=== PATIENT | female | born 1990 | race Caucasian/White ===

== ENCOUNTER 2022-03-25 11:27 | Inpatient (IN) | payer OTHER ==
[2022-03-28] MEDS ORDERED: TERBUTALINE 1 MG/ML VIAL SQ PRN (06:32)
[2022-03-28] MEDS ORDERED: LIDOCAINE 0.5% (PF) 5 MG/ML (50 ML SDV) SQ PRN (06:32)
[2022-03-28] MEDS ORDERED: METHYLERGONOVINE 0.2 MG/ML 1 ML AMP IM PRN (06:32)
[2022-03-28] MEDS ORDERED: OXYTOCIN 10 UNIT/ML 1 ML VIAL IM PRN (06:32)
[2022-03-28] MEDS ORDERED: CARBOPROST TROMETHAMINE 250 MCG/ML 1 ML AMP IM PRN (06:32)
[2022-03-28] MEDS: LACTATED RINGERS 1,000 ML IV SCH ×3 (06:37→12:46)
[2022-03-28] MEDS ORDERED: OXYTOCIN 30 UNITS/500 ML NS 30 UNIT in SALINE 1 500ML.BAG IV SCH ×2 (06:45→17:00)
[2022-03-28 06:47] LABS: Basophils # (A) 0.1 k/uL (0-0.2); Basophils % (A) 1 %; Eosinophils # (A) 0.6 k/uL (0-0.7); Eosinophils % (A) 4 %; HCT 35.3 % (34.0-46.0); HGB 12.2 gm/dL (11.4-16.0); Lymphocytes # (A) 2.2 k/uL (1.0-4.8); Lymphocytes % (A) 17 %; MCHC 34.6 g/dL (31.0-37.0); MCV 92.3 fL (80.0-100.0); Mean Platelet Volume 7.7; Monocytes # (A) 0.8 k/uL (0-1.0); Monocytes % (A) 6 %; Neutrophils # (A) 9.1 k/uL (1.3-7.7); Neutrophils % (A) 71 %; Platelet Count 261 k/uL (150-450); RBC 3.83 m/uL (3.80-5.40); RDW 11.9 % (11.5-15.5); WBC 12.9 k/uL (3.8-10.6)
[2022-03-28] MEDS ORDERED: BUTORPHANOL 1 MG/ML 1 ML VIAL IV PRN (10:31)
--- NOTE | 2022-03-28 10:36 | P.HPOB ---
History of Present Illness H&P Date: 03/28/22 Chief Complaint: 40-3/7 weeks, induction of labor The patient is a 31-year-old 1 para 0 admitted at 40-3/7 weeks as established by a 15 week ultrasound. She is admitted for induction of labor with all signs reassuring. Her has been entirely uncomplicated and group B strep status is negative. On labor and delivery, she has a category 1 heart rate tracing. Obstetrical history: 1 para 0 current statistics listed in history of present illness. EDC of 03/25/2022 was established by 15 week ultrasound. Laboratory workup demonstrates a blood type of O+ with a negative antibody screen. Rubella status is immune. The remainder of the laboratory workup was within normal limits. Second trimester Glucola was elevated but followed by a normal three-hour glucose tolerance test. Group B strep status is negative. Gynecologic history: Unremarkable with no history of any infections to include STDs. Review of Systems Review of systems is confined to history of present illness. Past Medical History Past Medical History: No Reported History History of Any Multi-Drug Resistant Organisms: None Reported Additional Past Surgical History / Comment(s): left wrist repair 2 years ago, left leg distal femur surgery. Past Anesthesia/Blood Transfusion Reactions: No Reported Reaction Past Psychological History: No Psychological Hx Reported Smoking Status: Never smoker Past Alcohol Use History: None Reported Past Drug Use History: None Reported Medications and Allergies Home Medications Medication Instructions Recorded Confirmed Type Vit No.179/Iron/Folic 1 tab PO DAILY 03/28/22 03/28/22 History [ Tablet] Allergies Allergy/AdvReac Type Severity Reaction Status Date / Time No Known Allergies Allergy Verified 03/28/22 06:27 Exam Vital Signs Temp Pulse Resp BP Pulse Ox 03/28/22 06:27 97.6 F 88 16 125/73 97 Intake and Output 03/27/22 03/28/22 03/28/22 22:59 06:59 14:59 Other: Weight 86.183 kg In general, this is a well-developed, well-nourished white female in no acute d istress. Her heart has a regular rhythm and rate without murmur. Her lungs clear to auscultation bilaterally in all kc. Her abdomen is gravid, nondistended, has normal active bowel sounds, soft, nontender, and without any palpable masses aside from uterine fundus. Her extremities are without any cyanosis, clubbing, or significant edema and are nontender to palpation bilaterally. Digital cervical examination demonstrates her cervix to be 2 cm dilated, 50% effaced, the vertex in presentation at -2 station. Artificial rupture of membranes is carried out demonstrating clear fluid. Results Result Diagrams: 03/28/22 06:30 Abnormal Lab Results - Last 24 Hours (Table) 03/28/22 Range/Units 06:30 WBC 12.9 H (3.8-10.6) k/uL Neutrophils # 9.1 H (1.3-7.7) k/uL Assessment and Plan (1) Post-dates Current Visit: Yes Status: Acute Code(s): O48.0 - POST-TERM SN ED Code(s): 11140458 Plan: The patient is admitted for postdates induction of labor. Pitocin augmentation has been started and she has undergone artificial rupture of membranes. She will continue to have close maternal and surveillance and expectant management will be practiced. She is a good candidate for either IV or epidural analgesia, whichever she may choose.
[2022-03-28] MEDS ORDERED: SODIUM CHLORIDE 0.9% 100 ML BAG ONE (12:26)
[2022-03-28] MEDS ORDERED: ROPIVACAINE 5 MG/ML 20 ML AMPULE ONE (12:26)
[2022-03-28] MEDS ORDERED: fentaNYL (PF) 50 MCG/ML 5 ML AMP ONE (12:26)
[2022-03-28] MEDS ORDERED: SIMETHICONE 80 MG CHEWABLE PO PRN (16:57)
[2022-03-28] MEDS ORDERED: HYDROcodone/APAP 5-325MG 1 EACH TAB PO PRN (16:57)
[2022-03-28] MEDS ORDERED: diphenhydrAMINE 25 MG CAP PO PRN (16:57)
[2022-03-28] MEDS ORDERED: BENZOCAINE/MENTHOL SPRAY 1 GM/SPRAY AEROSOL TOPICAL PRN (16:57)
[2022-03-28] MEDS ORDERED: diphenhydrAMINE 50 MG/ML 1 ML VIAL IVP PRN ×2 (16:57)
[2022-03-28] MEDS ORDERED: diphenhydrAMINE 50 MG CAP PO PRN (16:57)
[2022-03-28] MEDS ORDERED: HYDROcodone/APAP 7.5-325MG 1 EACH TAB PO PRN (16:57)
[2022-03-28] MEDS ORDERED: ACETAMINOPHEN TAB 325 MG TAB PO PRN (16:57)
[2022-03-28] MEDS ORDERED: HYDROCORTISONE 2.5% RECTAL CREAM 30 GM TUBE RECTAL PRN (16:57)
[2022-03-28] MEDS ORDERED: ZOLPIDEM 5 MG TAB PO PRN (16:57)
--- NOTE | 2022-03-28 17:02 | P.PROBDLV ---
Vaginal Delivery Note - . Vaginal Delivery Note: Isn't is a 31-year-old 1 para 0 admitted at 40-3/7 weeks for postdates induction of labor. She is admitted with all signs reassuring, category 1 heart rate tracing. Her has been entirely uncomplicated and group B strep status is negative. On labor and delivery, she had Pitocin started followed by artificial rupture of membranes for clear fluid. She made progress to near the onset of the active phase of labor and had an epidural catheter p laced for analgesia. She then progressed quickly through the active phase of labor to complete and pushed over the course of approximately 1 hour and 45 minutes to a normal spontaneous vaginal delivery of a viable 7 lbs. 0 oz. baby boy with Apgars of 9 at 1 minute and 9 at 5 minutes delivered in the left occiput anterior position. The placenta was delivered spontaneously, intact, and grossly normal with a grossly normal though velamentously inserted three- vessel cord which was inserted in the central portion of the placenta. There were no lacerations of the perineum, vagina, or cervix. Estimated blood loss was approximately 250 mL. There were no complications. All sponge, instrument, needle counts were correct. Both mother and are resting comfortably in recovery.
[2022-03-28] MEDS: SENNOSIDES-DOCUSATE SODIUM 1 EACH TAB PO SCH (20:26)
[2022-03-28] MEDS: IBUPROFEN 600 MG TAB PO PRN (21:23)
[2022-03-29 07:56] LABS: Basophils % (A) 0 %; Eosinophils # (A) 0.3 k/uL (0-0.7); Eosinophils % (A) 2 %; HCT 31.2 % (34.0-46.0); HGB 10.7 gm/dL (11.4-16.0); Lymphocytes # (A) 2.1 k/uL (1.0-4.8); Lymphocytes % (A) 14 %; MCH 32.3 pg (25.0-35.0); MCHC 34.2 g/dL (31.0-37.0); MCV 94.5 fL (80.0-100.0); Mean Platelet Volume 9.1; Monocytes # (A) 1.1 k/uL (0-1.0); Monocytes % (A) 7 %; Neutrophils # (A) 11.7 k/uL (1.3-7.7); Neutrophils % (A) 76 %; Platelet Count 248 k/uL (150-450); RBC 3.31 m/uL (3.80-5.40); RDW 12.4 % (11.5-15.5); WBC 15.4 k/uL (3.8-10.6)
--- NOTE | 2022-03-29 08:53 | P.DS ---
Providers Date of admission: 03/28/22 06:18 Expected date of discharge: 03/29/22 Attending physician: Elton Loera Primary care physician: Fam Jean MD - Discharge Diagnosis(es) (1) Post-dates Current Visit: Yes Status: Acute (2) Normal spontaneous vaginal delivery Current Visit: Yes Status: Acute Hospital Course: The patient is a 31-year-old 1 para 0 admitted at 40-3/7 weeks by good dating parameters perches admitted for induction of labor with all signs ena ssuring. Her was uncomplicated and group B strep status is negative. On labor and delivery, she had Pitocin started followed by artificial rupture of membranes for clear fluid. She progressed to the active phase at which time an epidural catheter was placed. She made rapid progress through the active phase of labor to complete and pushed to a normal spontaneous vaginal delivery of a viable 7 lbs. 0 oz. baby boy with Apgars of 9 at 1 minute and 9 at 5 minutes. Her course was unremarkable with vital signs remaining stable and her temperature was afebrile throughout. She was deemed stable for discharge on day #1 was discharged home to follow-up in the office in 6 weeks' time routinely. Discharge instructions included calling for any significantly increased bleeding or foul-smelling lochia, significantly increased fever or abdominal pain, perineal complaints, breast complaints, or anything else that concerned her. She was additionally instructed to have nothing in the vagina for at least 6 weeks time to include intercourse. She understood her instructions and agrees to follow up as noted above. Discharge medications included only [id number] analgesic pain medications. Maternal blood type is O+ and rubella status is immune. Procedures: #1. Pitocin induction of 2. Artificial rupture of membranes #3. Epidural analgesia #4. Normal spontaneous vaginal delivery Patient Condition at Discharge: Stable Plan - Discharge Summary New Discharge Prescriptions: No Action Vit No.179/Iron/Folic [ Tablet] 1 tab PO DAILY Discharge Medication List Vit No.179/Iron/Folic [ Tablet] 1 tab PO DAILY 03/28/22 [History] Follow up Appointment(s)/Referral(s): Elton Loera MD [STAFF PHYSICIAN] - 6 Weeks Discharge Disposition: HOME SELF-CARE
[2022-03-29] MEDS: SENNOSIDES-DOCUSATE SODIUM 1 EACH TAB PO SCH (10:02)
[2022-03-29] MEDS: IBUPROFEN 600 MG TAB PO PRN ×2 (10:02→15:54)
[2022-03-29 10:12] VITALS: RESP 16
[2022-03-29 15:58] VITALS: BP 124/78; PULSE 73; TEMP 97.5
== END 2022-03-29 17:29 | disposition home or self-care (01) | DRG 807 ==
LOC: 4FBP 03-28 06:18
PROVIDERS: ADMIT Obstetrics & Gynecology; ATTEND Obstetrics & Gynecology
PROC: 10E0XZZ Delivery of Products of Conception, External Approach (ICD-10-PCS; principal; 2022-03-28)
DX: O48.0 Post-term pregnancy (principal); Z37.0 Single live birth; O32.8XX0 Maternal care for other malpresentation of fetus, not applicable or unspecified; Z3A.40 40 weeks gestation of pregnancy
CPT/HCPCS: 85025; 86850; 86900; 86901